=== PATIENT | male | born 1940 | race Caucasian/White ===

== ENCOUNTER → 2019-07-26 | Day surgery (SDC) | payer OTHER ==
[2019-07-18 10:55] LABS: BASOPHILS # (AUTO) 0.1 (0.0-0.1); BASOPHILS % 0.7 % (0.0-1.0); EOSINOPHILS # (AUTO) 0.2 (0.0-0.4); EOSINOPHILS % 2.4 % (0.0-6.0); HEMATOCRIT 45.3 % (38.2-49.6); HEMOGLOBIN 13.9 g/dL (14.0-18.0); LYMPHOCYTES # (AUTO) 1.6 (1.0-3.2); LYMPHOCYTES % 21.7 % (18.0-39.1); MEAN CORPUSCULAR HEMOGLOBIN 27.9 pg (28-32); MEAN CORPUSCULAR HGB CONC 30.7 g/dL (31-35); MONOCYTES # (AUTO) 0.6 (0.2-0.8); MONOCYTES % 8.4 % (4.4-11.3); NEUTROPHILS # (AUTO) 4.9 (2.1-6.9); NEUTROPHILS % 66.4 % (38.7-80.0); PLATELET COUNT 145 x10e3/uL (140-360); RED BLOOD COUNT 4.98 x10e6/uL (4.3-5.7); RED CELL DISTRIBUTION WIDTH 13.5 % (11.7-14.4)
[~2019-07-26] MED LIST: GABAPENTIN100 MG PO; LIDOCAINE HCL 2% LOCAL INJ 5 ML SDV VIAL INJ ONE; LISINOPRIL10 MG PO; METOPROLOL TART25 MG PO; ONE DAILY COMP1 EACH PO; PREVASTATIN PO; PROAIR HFA INH8.5 GM; PROPOFOL IV EMULSION 10 MG/ML 20 ML VIAL ONE; SERTRALINE HCL100 MG PO
--- OUTSIDE RECORDS SUMMARY | 2019-07-26 08:28 | XMS REPORT ---
Author Author [facility] Address Unknown Phone Unavailable Care Team Providers Care Search Engine Optimization Consultant Name Role Phone RAY DURAND Unavailable Unavailable Problems This patient has no known problems. Allergies, Adverse Reactions, Alerts This patient has no known allergies or adverse reactions. Medications This patient has no known medications. Results Test Description Test Time Test Comments Text Results Atomic Results Result Comments US TESTICULAR [place] [address] Patient Name: RHODA GAMBLE MR #: [id number] : 1940 Age/Sex: 76/M Req #: [id number] Adm Physician: Ordered by: RAY DURAND MD Report #: [id number] Location: Room/Bed: Procedure: [id number] US/US TESTICULAR Exam Date: Exam Time: REPORT STATUS: Signed PROCEDURE: US TESTICULAR COMPARISON: None. INDICATIONS: SPERMATOCELE OF EPIDIDYMIS FINDINGS: Rollins scale color flow Doppler ultrasound of the scrotal contents was performed. Spectral waveform analysis of testicular blood flow was performed. Right testicle: 4.5 x 2.1 x 2.5 cm. Homogeneous texture with no mass. No evidence for hydrocele or varicocele. Normal arterial and venous blood flow. Right epididymis: Epididymal head measures 1.3 x 0.9 x 0.9 cm. No mass or hyperemia. Left testicle: 4.5 x 2.2 x 3.2 cm. Homogeneous echotexture with no mass. There is trace hydrocele. No varicocele. Normal arterial and venous blood flow. Left epididymis: Epididymal head measures 0.9 x 0.6 x 1.2 cm. There is a cystic area measuring 1.0 x 1.1 x 1.5 cm which may represent a spermatocele. No hyperemia. Scrotum: No localized thickening of the scrotal sac. CONCLUSION: 1. No testicular mass. Normal arterial and venous blood flow to each testicle. Trace left hydrocele. 2. 1.5 cm cystic area related to the left epididymis which may represent a spermatocele. Dictated by: Lion Adams M.D. on 05/18/2017 at 10:11 Electronically approved by: Lion Adams M.D. on 05/18/2017 at 10:11 Dictated By: LION ADAMS MD 1011 Transcribed By: PHILLY on 05/18/17 1011 COPY TO: RAY DUGAN MD
[2019-07-26 12:35] VITALS: BP 145/78
== END | disposition home or self-care (01) ==
LOC: OR 08:26
PROVIDERS: ATTEND Internal Medicine Gastroenterology
DX: R19.7 Diarrhea, unspecified (principal); K30 Functional dyspepsia; Z71.3 Dietary counseling and surveillance; E66.3 Overweight; Z68.28 Body mass index [BMI] 28.0-28.9, adult; Z86.010 Personal history of colon polyps; Z88.5 Allergy status to narcotic agent; Z88.0 Allergy status to penicillin; Z88.8 Allergy status to other drugs, medicaments and biological substances; J44.9 Chronic obstructive pulmonary disease, unspecified; G47.30 Sleep apnea, unspecified; K63.5 Polyp of colon; N20.0 Calculus of kidney; K22.70 Barrett's esophagus without dysplasia; L53.8 Other specified erythematous conditions; K44.9 Diaphragmatic hernia without obstruction or gangrene; K29.70 Gastritis, unspecified, without bleeding; K62.1 Rectal polyp; K29.50 Unspecified chronic gastritis without bleeding; K21.0 Gastro-esophageal reflux disease with esophagitis; D12.1 Benign neoplasm of appendix; D12.3 Benign neoplasm of transverse colon
CPT/HCPCS: 36415; 43239; 45380; 45385; 85025; 93005; J2001; J2704; 45384

== ENCOUNTER → 2021-10-08 | Day surgery (SDC) | payer OTHER ==
[2021-10-07 10:27] LABS: BASOPHILS # (AUTO) 0.1 (0.0-0.1); BASOPHILS % 0.9 % (0.0-1.0); EOSINOPHILS # (AUTO) 0.3 (0.0-0.4); EOSINOPHILS % 3.3 % (0.0-6.0); HEMATOCRIT 45.4 % (38.2-49.6); HEMOGLOBIN 13.5 g/dL (14.0-18.0); LYMPHOCYTES # (AUTO) 1.2 (1.0-3.2); LYMPHOCYTES % 15.7 % (18.0-39.1); MEAN CORPUSCULAR HEMOGLOBIN 27.4 pg (28-32); MEAN CORPUSCULAR HGB CONC 29.7 g/dL (31-35); MEAN CORPUSCULAR VOLUME 92.1 fL (81-99); MONOCYTES # (AUTO) 0.9 (0.2-0.8); MONOCYTES % 12.1 % (4.4-11.3); NEUTROPHILS # (AUTO) 5.1 (2.1-6.9); NEUTROPHILS % 67.5 % (38.7-80.0); PLATELET COUNT 162 x10e3/uL (140-360); RED BLOOD COUNT 4.93 x10e6/uL (4.3-5.7); RED CELL DISTRIBUTION WIDTH 13.3 % (11.7-14.4)
[~2021-10-08] MED LIST changes: +POVIDONE IODINE 0.05% 0.05 % ML PO ONE
[2021-10-08 12:25] VITALS: BP 131/57
== END | disposition home or self-care (01) ==
LOC: OR 09:00
PROVIDERS: ATTEND Internal Medicine Gastroenterology
DX: K22.70 Barrett's esophagus without dysplasia (principal); K29.50 Unspecified chronic gastritis without bleeding; B96.81 Helicobacter pylori [H. pylori] as the cause of diseases classified elsewhere; K44.9 Diaphragmatic hernia without obstruction or gangrene; Z86.010 Personal history of colon polyps; Z71.3 Dietary counseling and surveillance; G47.30 Sleep apnea, unspecified; J44.9 Chronic obstructive pulmonary disease, unspecified; R16.1 Splenomegaly, not elsewhere classified; E66.3 Overweight; I10 Essential (primary) hypertension; R00.1 Bradycardia, unspecified; I45.10 Unspecified right bundle-branch block; Z88.6 Allergy status to analgesic agent; Z88.1 Allergy status to other antibiotic agents; Z88.0 Allergy status to penicillin; Z01.810 Encounter for preprocedural cardiovascular examination; Z01.812 Encounter for preprocedural laboratory examination; Z20.822 Contact with and (suspected) exposure to COVID-19; Z79.899 Other long term (current) drug therapy; Z68.28 Body mass index [BMI] 28.0-28.9, adult; Z95.2 Presence of prosthetic heart valve
CPT/HCPCS: 36415; 43239; 85025; 88305; 88312; 93005; J2001; U0002